=== PATIENT | female | born 1965 | race Caucasian/White ===

== ENCOUNTER 2016-11-10 19:29 | Inpatient (IN) | payer MEDICAID, OTHER ==
[~2016-11-10] VITALS: Ht 154.9 cm; Wt 51.0 kg
--- NOTE | 2016-11-10 20:32 | PD ---
HPI Chief Complaint: Ruiz Act Time Seen by Provider: 20:12 Travel History International Travel<30 days: No Contact w/Intl Traveler<30days: No History of Present Illness HPI Patient is a 51 year old female presents to the ER under ruiz act. According to ruiz act the patient threatened to cut herself last night to kill herself. States that whenever she is released she will just get a sharper knife to cut herself. Denies physical complaint. Denies cp/sob/abdominal pain/nvd/ constipation. PFSH Past Medical History Narrative Medical depression Past Surgical History Surgical History: No Previous Surgery Social History Alcohol Use: Yes Tobacco Use: Yes Substance Use: Yes Allergies-Medications (Allergen,Severity, Reaction): Coded Allergies: No Known Allergies (Unverified , 11/10/16) Reported Meds & Prescriptions Reported Meds & Active Scripts Active Reported Citalopram (Citalopram Hydrobromide) 40 Mg Tab 40 Mg PO DAILY Clonazepam 0.5 Mg Tab 0.5 Mg PO BID Levothyroxine (Levothyroxine Sodium) 25 Mcg Tab 25 Mcg PO DAILY Review of Systems Except as stated in HPI: all other systems reviewed are Neg Physical Exam Narrative GENERAL: wd/wn in nad. SKIN: Warm and dry. No cuts, no scrapes, no abrasions. marker on left forearm patient states love not from her daughter to remind her not to cut. HEAD: Atraumatic. Normocephalic. EYES: Pupils equal and round. No scleral icterus. No injection or drainage. ENT: No nasal bleeding or discharge. Mucous membranes pink and moist. NECK: Trachea midline. No JVD. CARDIOVASCULAR: Regular rate and rhythm. RESPIRATORY: No accessory muscle use. Clear to auscultation. Breath sounds equal bilaterally. GASTROINTESTINAL: Abdomen soft, non-tender, nondistended. Hepatic and splenic margins not palpable. MUSCULOSKELETAL: Extremities without clubbing, cyanosis, or edema. No obvious deformities. NEUROLOGICAL: Awake and alert. No obvious cranial nerve deficits. Motor grossly within normal limits. Five out of 5 muscle strength in the arms and legs. Normal speech. PSYCHIATRIC: endorses SI. Denies AVH. insight fair judgement poor. Data Data Last Documented VS Vital Signs Date Time Temp Pulse Resp B/P (MAP) Pulse Ox O2 Delivery O2 Flow Rate FiO2 11/11/16 02:09 74 16 114/69 (84) 98 Room Air 11/10/16 20:37 97.8 Orders Orders Complete Blood Count With Diff (11/10/16 20:13) Comprehensive Metabolic Panel (11/10/16 20:13) Psych Screen (11/10/16 20:13) Drug Screen, Random Urine (11/10/16 20:13) Alcohol (Ethanol) (11/10/16 20:13) Ed Urine Pregnancytest Poc (11/10/16 20:13) Thyroid Stimulating Hormone (11/10/16 20:32) Labs Laboratory Tests Test 11/10/16 20:20 White Blood Count 9.6 TH/MM3 Red Blood Count 4.35 MIL/MM3 Hemoglobin 13.8 GM/DL Hematocrit 42.3 % Mean Corpuscular Volume 97.1 FL Mean Corpuscular Hemoglobin 31.8 PG Mean Corpuscular Hemoglobin Concent 32.8 % Red Cell Distribution Width 13.5 % Platelet Count 284 TH/MM3 Mean Platelet Volume 6.6 FL Neutrophils (%) (Auto) 60.2 % Lymphocytes (%) (Auto) 25.0 % Monocytes (%) (Auto) 9.8 % Eosinophils (%) (Auto) 4.4 % Basophils (%) (Auto) 0.6 % Neutrophils # (Auto) 5.8 TH/MM3 Lymphocytes # (Auto) 2.4 TH/MM3 Monocytes # (Auto) 0.9 TH/MM3 Eosinophils # (Auto) 0.4 TH/MM3 Basophils # (Auto) 0.1 TH/MM3 CBC Comment DIFF FINAL Differential Comment Blood Urea Nitrogen 12 MG/DL Creatinine 0.79 MG/DL Random Glucose 86 MG/DL Total Protein 7.4 GM/DL Albumin 4.1 GM/DL Calcium Level 9.3 MG/DL Alkaline Phosphatase 43 U/L Aspartate Amino Transf (AST/SGOT) 19 U/L Alanine Aminotransferase (ALT/SGPT) 21 U/L Total Bilirubin 0.3 MG/DL Sodium Level 139 MEQ/L Potassium Level 3.3 MEQ/L Chloride Level 104 MEQ/L Carbon Dioxide Level 23.4 MEQ/L Anion Gap 12 MEQ/L Estimat Glomerular Filtration Rate 76 ML/MIN Thyroid Stimulating Hormone 3rd Gen 2.790 uIU/ML Urine Opiates Screen NEG Urine Barbiturates Screen NEG Urine Amphetamines Screen NEG Urine Benzodiazepines Screen NEG Urine Cocaine Screen NEG Urine Cannabinoids Screen NEG Ethyl Alcohol Level 132 MG/DL [facility] Medical Decision Making Medical Screen Exam Complete: Yes Emergency Medical Condition: Yes Differential Diagnosis Sucidal ideation, psychosis, depression, intoxication. Narrative Course Patient is a 51-year-old female presents emergency department on act. Per the Ruiz act the patient failed to slice her wrists yesterday because she had a knife that was too dull. The patient is telling my staff as well as me that if early she will go home and use a sharper knife and make sure she kill herself. She states no matter how long she is here when she leaves she will try to kill herself. Patient has no physical complaints at this time, has no cuts that I see on her person. She is medically cleared for psychiatric evaluation and disposition on . Diagnosis Primary Impression: Suicidal ideation Disposition: 01 DISCHARGE HOME Condition: Stable Jamar Laws MD Nov 10, 2016 20:32
[2016-11-10 20:37] VITALS: BP 115/70; PULSE 80; RESP 16; TEMP 97.8; O2SAT 97
[2016-11-10 20:47] LABS: AUTOMATED NEUTROPHIL # 5.8 TH/MM3 (1.8-7.7); BASOPHIL # 0.1 TH/MM3 (0-0.2); BASOPHIL % 0.6 % (0.0-2.0); EOSINOPHIL # 0.4 TH/MM3 (0-0.4); EOSINOPHIL % 4.4 % (0.0-4.0); HEMATOCRIT 42.3 % (35.0-46.0); HEMO FLAGS DIFF FINAL; LYMPHOCYTE # 2.4 TH/MM3 (1.0-4.8); MEAN CELL VOLUME 97.1 FL (80.0-100.0); MEAN CORPUSCULAR HEMOGLOBIN 31.8 PG (27.0-34.0); MEAN CORPUSCULAR HGB CONC 32.8 % (32.0-36.0); MONO % 9.8 % (0.0-8.0); NEUT % 60.2 % (16.0-70.0); PLATELET COUNT 284 TH/MM3 (150-450); RED BLOOD COUNT 4.35 MIL/MM3 (4.00-5.30); RED CELL DISTRIBUTION WIDTH 13.5 % (11.6-17.2); WHITE BLOOD COUNT 9.6 TH/MM3 (4.0-11.0)
[2016-11-10] MEDS ORDERED: CLON0.5T PO (20:50)
[2016-11-10] MEDS ORDERED: LEVO25TA4 PO (20:50)
[2016-11-10] MEDS ORDERED: CITA40TA4 PO (20:50)
[2016-11-10 21:03] LABS: ANION GAP 12 MEQ/L (5-15); AST (GOT) 19 U/L (15-37); BICARBONATE 23.4 MEQ/L (21.0-32.0); BLOOD UREA NITROGEN 12 MG/DL (7-18); CHLORIDE 104 MEQ/L (98-107); GLOMERULAR FILTRATION RATE 76 ML/MIN (>89); POTASSIUM 3.3 MEQ/L (3.5-5.1); SODIUM (NA) 139 MEQ/L (136-145)
[2016-11-10 21:04] LABS: ALT (GPT) 21 U/L (10-53)
[2016-11-10 21:06] LABS: ALKALINE PHOSPHATASE 43 U/L (45-117); TOTAL BILIRUBIN ADULT 0.3 MG/DL (0.2-1.0)
[2016-11-10 21:13] LABS: ALCOHOL 132 MG/DL (0-5)
[2016-11-11 02:09] VITALS: BP 114/69; PULSE 74; RESP 16; O2SAT 98
[2016-11-11 06:20] VITALS: BP 105/64; PULSE 70; RESP 17; O2SAT 98
[2016-11-11 14:22] VITALS: BP 138/95; PULSE 50; RESP 16; O2SAT 97
[2016-11-11 17:52] VITALS: BP 120/62; PULSE 68; RESP 18; O2SAT 97
[2016-11-11] MEDS ORDERED: LORazepam 0.5 MG TAB PO PRN (18:15)
[2016-11-11] MEDS ORDERED: MAGNESIUM HYDROXIDE SUSP 30 ML CUP PO PRN (18:15)
[2016-11-11] MEDS ORDERED: ACETAMINOPHEN 325 MG TAB PO PRN (18:15)
[2016-11-11] MEDS ORDERED: ALUMINUM/MAGNESIUM/SIMETH 30 ML CUP PO PRN (18:15)
[2016-11-11] MEDS ORDERED: LORazepam 2 MG/ML VIAL IM PRN ×2 (18:15)
[2016-11-11] MEDS ORDERED: LORazepam 1 MG TAB PO PRN (18:15)
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
[2016-11-11] MEDS: clonazePAM 0.5 MG TAB PO SCH (23:09)
[2016-11-11 23:19] VITALS: BP 117/66; PULSE 66; RESP 18; TEMP 97.7; O2SAT 98
[2016-11-12] MEDS: traZODone HCL 50 MG TAB PO PRN (00:13)
[2016-11-12] MEDS: LEVOTHYROXINE SODIUM 25 MCG TAB PO SCH (05:47)
[2016-11-12 06:04] VITALS: BP 90/56; PULSE 60; RESP 16; TEMP 97.8; O2SAT 98
[2016-11-12] MEDS: clonazePAM 0.5 MG TAB PO SCH ×2 (09:38→21:36)
[2016-11-12 09:40] LABS: AUTOMATED NEUTROPHIL # 6.4 TH/MM3 (1.8-7.7); BASOPHIL % 0.4 % (0.0-2.0); EOSINOPHIL # 0.6 TH/MM3 (0-0.4); EOSINOPHIL % 6.3 % (0.0-4.0); HEMATOCRIT 42.4 % (35.0-46.0); HEMO FLAGS DIFF FINAL; LYMPH % 16.7 % (9.0-44.0); LYMPHOCYTE # 1.5 TH/MM3 (1.0-4.8); MEAN CELL VOLUME 97.3 FL (80.0-100.0); MEAN CORPUSCULAR HEMOGLOBIN 33.5 PG (27.0-34.0); MEAN CORPUSCULAR HGB CONC 34.4 % (32.0-36.0); MONO % 6.2 % (0.0-8.0); NEUT % 70.4 % (16.0-70.0); PLATELET COUNT 223 TH/MM3 (150-450); RED BLOOD COUNT 4.36 MIL/MM3 (4.00-5.30); RED CELL DISTRIBUTION WIDTH 13.4 % (11.6-17.2); WHITE BLOOD COUNT 9.1 TH/MM3 (4.0-11.0)
[2016-11-12 10:05] LABS: ANION GAP 8 MEQ/L (5-15); AST (GOT) 11 U/L (15-37); BICARBONATE 27.7 MEQ/L (21.0-32.0); BLOOD UREA NITROGEN 13 MG/DL (7-18); CHLORIDE 102 MEQ/L (98-107); GLOMERULAR FILTRATION RATE 85 ML/MIN (>89); POTASSIUM 3.6 MEQ/L (3.5-5.1); SODIUM (NA) 138 MEQ/L (136-145)
[2016-11-12 10:33] LABS: ALKALINE PHOSPHATASE 35 U/L (45-117); ALT (GPT) 18 U/L (10-53); HDL CHOLESTEROL 94.5 MG/DL (40.0-60.0); LDL CHOLESTEROL 73 MG/DL (0-99); TOTAL BILIRUBIN ADULT 0.5 MG/DL (0.2-1.0)
--- NOTE | 2016-11-12 11:13 | EKG ---
Date Performed: 11/12/2016 Time Performed: 09:06:49 PTAGE: 51 years EKG: Sinus rhythm WITH SHORT NH INTERVAL BORDERLINE ECG NO PREVIOUS TRACING DOCTOR: Nicola Escobar Interpretating Date/Time 11/12/2016 11:11:30
[2016-11-12 12:29] LABS: HEMOGLOBIN A1a 0.9 %; HEMOGLOBIN A1b 0.6 %; HEMOGLOBIN Ao 86.6 %; HEMOGLOBIN F 1.1 %; HEMOGLOBIN LA1C 2.1 %; HEMOGLOBIN P3 3.4 %
[2016-11-12] MEDS ORDERED: IBUPROFEN 600 MG TAB PO ONE (12:45)
[2016-11-12] MEDS ORDERED: LORazepam 2 MG/ML VIAL IM PRN (12:45)
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
[2016-11-12] MEDS ORDERED: POTASSIUM CHLORIDE 20 MEQ CONTROLLED RELEASE TAB PO ONE (13:00)
[2016-11-12] MEDS: THIAMINE HCL 100 MG TAB PO SCH (13:37)
[2016-11-12] MEDS: buPROPion HCL 100 MG TAB PO SCH ×2 (13:38→21:36)
[2016-11-12] MEDS: FOLIC ACID 1 MG TAB PO SCH (13:38)
[2016-11-12] MEDS: MULTIVITAMIN TAB PO SCH (13:38)
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
[2016-11-12 18:58] VITALS: BP 106/55; PULSE 72; RESP 17; TEMP 97.9; O2SAT 99
[2016-11-13] MEDS: IBUPROFEN 600 MG TAB PO PRN ×3 (03:06→22:11)
[2016-11-13 05:48] VITALS: BP 103/57; PULSE 71; RESP 16; TEMP 97.1; O2SAT 97
[2016-11-13] MEDS: LEVOTHYROXINE SODIUM 25 MCG TAB PO SCH (06:07)
[2016-11-13] MEDS: FOLIC ACID 1 MG TAB PO SCH (09:03)
[2016-11-13] MEDS: clonazePAM 0.5 MG TAB PO SCH ×2 (09:03→21:48)
[2016-11-13] MEDS: MULTIVITAMIN TAB PO SCH (09:03)
[2016-11-13] MEDS: THIAMINE HCL 100 MG TAB PO SCH (09:03)
[2016-11-13] MEDS: buPROPion HCL 100 MG TAB PO SCH ×2 (09:03→21:48)
[2016-11-13 17:55] VITALS: BP 126/53; PULSE 82; RESP 16; TEMP 98; O2SAT 98
--- NOTE | 2016-11-13 18:41 | HHI.PYPN ---
Subjective Remarks Patient seen for follow-up, chart reviewed. Patient reports that her day had been "not so good" as she crying episode this morning. She reports that she was visited by her daughter who had brought her a poetry book and clothing. She reports having attended group therapy. She continues to feel depressed, worthless and states wanting her family to appreciate her more. Continues to endorse thoughts of not wanting to be alive. Review of Systems Except as stated in HPI: all other systems reviewed are Neg Objective Alert: Yes [place]: Person, Place, Date, Situation Mood: Depressed Affect: Tearful Memory Intact: Comment (intact) Hallucinations: Other (denies) Delusions: No Delusion Type: Other (denies) Suicidal: Ideation (continues with thoughts of not wanting to be alive) Homicidal: Ideation (denies) Insight/Judgment fair insight, impulse control and judgement Vitals/IOs Vital Signs Date Time Temp Pulse Resp B/P (MAP) Pulse Ox O2 Delivery O2 Flow Rate FiO2 11/13/16 17:55 98.0 82 16 126/53 (77) 98 11/11/16 17:52 Room Air Intake and Output 11/13/16 11/13/16 11/13/16 07:59 15:59 23:59 Intake Total 240 ml Balance 240 ml Assessment & Plan Problem List: (1) Severe major depression, single episode, without psychotic features ICD Codes: F32.2 - Major depressive disorder, single episode, severe without psychotic features Assessment & Plan Patient at this time continues to endorse SI and feeling depressed. Will continue current dose for now with upward titration if little or no response. Supportive psychotherapy provided. Discharge planning in progress. Justification for Cont. Inpt. At risk for further decompensation if at lower level of care Albert Gusman MD Nov 13, 2016 18:41
[2016-11-14] MEDS: LEVOTHYROXINE SODIUM 25 MCG TAB PO SCH (05:37)
[2016-11-14 06:12] VITALS: BP 109/71; PULSE 69; RESP 16; TEMP 97.4; O2SAT 100
[2016-11-14] MEDS: MULTIVITAMIN TAB PO SCH (09:09)
[2016-11-14] MEDS: buPROPion HCL 100 MG TAB PO SCH ×2 (09:09→21:00)
[2016-11-14] MEDS: clonazePAM 0.5 MG TAB PO SCH ×2 (09:09→21:00)
[2016-11-14] MEDS: THIAMINE HCL 100 MG TAB PO SCH (09:09)
[2016-11-14] MEDS: FOLIC ACID 1 MG TAB PO SCH (09:09)
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
[2016-11-14] MEDS ORDERED: DOCUSATE SODIUM 100 MG CAP PO ONE (14:00)
[2016-11-14 17:56] VITALS: BP 129/79; PULSE 80; RESP 17; TEMP 98.2; O2SAT 96
[2016-11-14] MEDS: traZODone HCL 50 MG TAB PO PRN ×2 (22:35→23:35)
[2016-11-15 05:28] VITALS: BP 92/50; PULSE 83; RESP 17; TEMP 98.3; O2SAT 98
[2016-11-15] MEDS: LEVOTHYROXINE SODIUM 25 MCG TAB PO SCH (06:00)
[2016-11-15] MEDS: FOLIC ACID 1 MG TAB PO SCH (08:57)
[2016-11-15] MEDS: THIAMINE HCL 100 MG TAB PO SCH (08:57)
[2016-11-15] MEDS: buPROPion HCL 100 MG TAB PO SCH ×2 (08:57→22:29)
[2016-11-15] MEDS: MULTIVITAMIN TAB PO SCH (08:58)
[2016-11-15] MEDS: clonazePAM 0.5 MG TAB PO SCH ×2 (08:58→22:29)
[2016-11-15 16:25] VITALS: BP 104/81; PULSE 86; RESP 18; TEMP 98.4; O2SAT 100
--- NOTE | 2016-11-15 16:53 | HHI.PYPN ---
Subjective Remarks Pt seen and discussed [facility] staff. Depression is improving and she has been more active on unit. She is compliant with medications and denies side effects. She reports that mood is much better today and she has not had suicidal thoughts today. Objective Alert: Yes Sigel: Person, Place, Date, Situation Mood: Depressed Affect: Restricted Memory Intact: Comment (intact) Hallucinations: Other (denies) Delusions: No Delusion Type: Other (denies) Suicidal: Ideation (denies today) Homicidal: Ideation (denies) Insight/Judgment poor Vitals/IOs Vital Signs Date Time Temp Pulse Resp B/P (MAP) Pulse Ox O2 Delivery O2 Flow Rate FiO2 11/15/16 16:25 98.4 86 18 104/81 (89) 100 11/11/16 17:52 Room Air Assessment & Plan Problem List: (1) Severe major depression, single episode, without psychotic features ICD Codes: F32.2 - Major depressive disorder, single episode, severe without psychotic features Assessment & Plan Continue current tx plan. Estimated LOS: days Justification for Cont. Inpt. monitoring for safety. Greta Gutierrez MD Nov 15, 2016 16:53
[2016-11-16 06:22] VITALS: BP 114/68; PULSE 68; RESP 16; TEMP 97.9; O2SAT 98
[2016-11-16] MEDS: LEVOTHYROXINE SODIUM 25 MCG TAB PO SCH (06:29)
[2016-11-16] MEDS: clonazePAM 0.5 MG TAB PO SCH ×2 (09:38→21:06)
[2016-11-16] MEDS: FOLIC ACID 1 MG TAB PO SCH (09:38)
[2016-11-16] MEDS: buPROPion HCL 100 MG TAB PO SCH ×2 (09:38→21:06)
[2016-11-16] MEDS: MULTIVITAMIN TAB PO SCH (09:38)
[2016-11-16] MEDS: THIAMINE HCL 100 MG TAB PO SCH (09:38)
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
[2016-11-16 17:11] VITALS: BP 122/76; PULSE 73; RESP 18; TEMP 98.1; O2SAT 100
[2016-11-17] MEDS: LEVOTHYROXINE SODIUM 25 MCG TAB PO SCH (06:02)
[2016-11-17 06:28] VITALS: BP 97/64; PULSE 71; RESP 17; TEMP 97.9; O2SAT 99
[2016-11-17] MEDS: clonazePAM 0.5 MG TAB PO SCH (08:57)
[2016-11-17] MEDS: FOLIC ACID 1 MG TAB PO SCH (08:57)
[2016-11-17] MEDS: buPROPion HCL 100 MG TAB PO SCH (08:57)
[2016-11-17] MEDS: THIAMINE HCL 100 MG TAB PO SCH (08:57)
[2016-11-17] MEDS: MULTIVITAMIN TAB PO SCH (08:57)
[2016-11-17] MEDS ORDERED: FOLI1TAB6 PO (10:11)
[2016-11-17] MEDS ORDERED: LEVO25TA4 PO (10:11)
[2016-11-17] MEDS ORDERED: GNP100TA3 PO (10:11)
[2016-11-17] MEDS ORDERED: THERTAB15 PO (10:11)
[2016-11-17] MEDS ORDERED: BUPR100T4 PO (10:11)
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
== END 2016-11-17 13:35 | disposition home or self-care (01) | DRG 885 ==
LOC: NEPD 19:29 → NEDA 11-11 18:12 → H260 11-11 22:36
PROVIDERS: ADMIT Student in an Organized Health Care Education/Training Program; ATTEND Student in an Organized Health Care Education/Training Program
DX: F32.2 Major depressive disorder, single episode, severe without psychotic features (principal); R45.851 Suicidal ideations; F41.9 Anxiety disorder, unspecified; F10.10 Alcohol abuse, uncomplicated; R00.2 Palpitations; E03.9 Hypothyroidism, unspecified; Y90.6 Blood alcohol level of 120-199 mg/100 ml; Z72.0 Tobacco use; Z62.810 Personal history of physical and sexual abuse in childhood
CPT/HCPCS: 80053; 80061; 80307; 82306; 82607; 83036; 84443; 84703; 85025; 93005